=== PATIENT | female | born 1995 | race Caucasian/White ===

== ENCOUNTER 2016-11-07 14:34 | Emergency (ER) | payer MEDICAID ==
[2015-08-17 04:43] VITALS: BMI 39.3
[~2016-11-07 14:34] MED LIST: ACETAMINOPHEN325 MG PO; IBUPROFEN600 MG PO; PERCOCET 10/3251 TA1 PO; PRENATAL COMPLE1 TAB PO; TUMS500 MG PO
[2016-11-07 16:00] LABS: BASOPHILS 0.2 % (0.0-2.0); EOSINOPHILS 1.4 % (0-7); HEMATOCRIT 33.9 % (36.0-48.0); HEMOGLOBIN 11.1 g/dL (12-16); IMMATURE GRANULOCYTES 0.3 % (0-5); LYMPHOCYTES 17.5 % (15-50); MCHC 32.7 g/dL (31.0-37.0); MCV 85.4 fL (80.0-100.0); MEAN PLATELET VOLUME 11.3 fL (7.4-10.4); MONOCYTES 7.7 % (2-11); NEUTROPHILS 72.9 % (40-80); RBC 3.97 10x6/uL (4.00-5.40); WBC 11.2 10x3/uL (4.8-10.8)
[2016-11-07 16:01] LABS: PLATELET COUNT 265 10x3/uL (130-400)
[2016-11-07 16:25] LABS: ALBUMIN 2.5 g/dL (3.4-5.0); ALKALINE PHOSPHATASE 81 U/L (46-116); ALT (SGPT) 12 U/L (10-68); CALC OSMOLALITY 274 mosm/kg (275-300); CALCIUM 8.9 mg/dL (8.5-10.1); CARBON DIOXIDE 25.9 mmol/L (21.0-32.0); CHLORIDE - SERUM 105 mmol/L (98-107); CREATININE - SERUM 0.4 mg/dL (0.6-1.3); GLUCOSE 84 mg/dL (74-106); PROTEIN - SERUM 5.9 g/dL (6.4-8.2); SODIUM 140 mmol/L (136-145); UREA NITROGEN 5 mg/dL (7-18); eGFR NON AFRICAN AMERICAN > 90 mL/min (90-120)
[2016-11-07 16:34] LABS: APPEARANCE CLEAR (CLEAR); BILIRUBIN NEGATIVE (NEGATIVE); COLOR YELLOW (YELLOW); GLUCOSE NEGATIVE (NEGATIVE); KETONE NEGATIVE (NEGATIVE); LEUKOCYTE ESTERASE NEGATIVE (NEGATIVE); NITRITE NEGATIVE (NEGATIVE); PROTEIN NEGATIVE (NEGATIVE); UROBILINOGEN NORMAL (NORMAL)
[2016-11-07 16:36] LABS: BACTERIA FEW /hpf (NONE SEEN); EPITHELIAL CELLS 0-5 /hpf (0-5); RED CELLS - URINE OCC /hpf (0-5); WHITE CELLS - URINE OCC /hpf (0-5)
[2016-11-07 16:45] LABS: BILIRUBIN - TOTAL 0.06 mg/dL (0.2-1.3)
[2016-11-07 18:16] LABS: HCG URINE POSITIVE (NEGATIVE)
== END 2016-11-07 18:23 | disposition home or self-care (01) ==
LOC: D.ER 14:34
PROVIDERS: Emergency Medicine; Physician Assistant
DX: O20.9 Hemorrhage in early pregnancy, unspecified (principal); R10.9 Unspecified abdominal pain